=== PATIENT | female | born 1970 | race Caucasian/White ===

== ENCOUNTER 2020-12-06 11:48 | Emergency (ER) | payer SELFPAY ==
[~2020-12-06] VITALS: Ht 154.9 cm; Wt 77.0 kg
[~2020-12-06 11:48] MED LIST: BACTRIM DS1 TAB PO; CEPHALEXIN500 MG PO; CIPROFLOXACN500 MG PO; LORTAB 10-325 M1 TAB PO; LORTAB 5 OR; MOTRIN400 MG OR; MOTRIN800 MG PO; MUPIROCIN2 % TOP; NAPROSYN500 MG OR; PENICILLN VK500 MG OR; PERCOCET 5/325M1 TAB OR; PERCOCET 5/325M1 TAB PO; PERIDEX0.12 % MT; ULTRAM50 M1 PO; VEETIDS500 MG OR
[2020-12-06 12:23] LABS: IMMATURE GRANULOCYTES 0.4 % (0.0-5.0); MEAN CELL VOLUME 92.5 fL CALC (80.0-100.0); MEAN CORPUSCULAR HGB 29.8 pG CALC (26.0-32.0); MEAN CORPUSCULAR HGB CONC 32.2 g/dL CAL (32.0-36.0); NEUT# 8.98 thou/uL (2.00-7.15); RED BLOOD COUNT 4.26 mill/uL (4.20-5.60); RED CELL DISTRI WIDTH 13.3 % (11.5-15.5)
[2020-12-06 12:27] LABS: HEMATOCRIT 39.4 % (37.0-47.0); HEMOGLOBIN 12.7 g/dl (12.0-16.0)
[2020-12-06 12:35] LABS: ALKALINE PHOSPHATASE 101 u/l (38-126); ANION GAP 12 (6-22 (CALC)); BUN 18 mg/dL (7-17); BUN/CREATININE RATIO 24 (12-20 (CALC)); CARBON DIOXIDE 23 mmol/l (22-30); CHLORIDE 109 mmol/l (95-108); CREATININE 0.8 mg/dL (0.5-1.0); GFR > 60 ML/MIN (>=60 (CALC)); GFR FOR AFR.AMER. > 60 ML/MIN (>=60 (CALC)); POTASSIUM 4.2 mmol/l (3.5-5.1); SGOT/AST 28 u/l (14-36); SODIUM 140 mmol/l (137-146)
[2020-12-06 12:39] LABS: ALBUMIN 4.3 g/dL (3.2-5.0); BILIRUBIN, TOTAL 0.3 mg/dL (0.0-1.4); TOTAL PROTEIN 7.8 g/dL (6.3-8.2)
[2020-12-06 12:48] LABS: ACT PARTIAL THROMBO TIME 23.2 SECONDS (20.0-32.5); PROTHROMBIN TIME 10.3 SECONDS (9.0-12.5)
[2020-12-06] MEDS ORDERED: PERCOCET 5/325M1 TAB PO (13:41)
[2020-12-06 13:52] VITALS: BP 138/74
== END 2020-12-06 14:03 | disposition home or self-care (01) | DRG 563 ==
LOC: ED 11:48
PROC: 2W3CX1Z Immobilization of Right Lower Arm using Splint (ICD-10-PCS; principal; 2020-12-06)
DX: S52.501A Unspecified fracture of the lower end of right radius, initial encounter for closed fracture (principal); S52.611A Displaced fracture of right ulna styloid process, initial encounter for closed fracture; F17.210 Nicotine dependence, cigarettes, uncomplicated; W11.XXXA Fall on and from ladder, initial encounter